=== PATIENT | female | born 1985 | race Two or more races ===

== ENCOUNTER 2021-05-14 08:13 | Emergency (ER) | payer OTHER ==
[~2021-05-14] VITALS: Ht 167.6 cm; Wt 82.6 kg
[2021-05-14] MEDS ORDERED: PYRIDIUM200 MG PO (13:58)
[2021-05-14] MEDS ORDERED: CIPRO500 MG PO (13:58)
== END 2021-05-14 14:20 | disposition home or self-care (01) ==
LOC: ER 08:13
DX: R30.0 Dysuria (principal)

== ENCOUNTER 2021-07-30 21:52 | Emergency (ER) | payer OTHER ==
[~2021-07-30] VITALS: Ht 167.6 cm; Wt 87.1 kg
[~2021-07-30 21:52] MED LIST: CIPRO500 MG PO; PYRIDIUM200 MG PO
== END 2021-07-30 22:59 | disposition home or self-care (01) ==
LOC: ER 21:52